=== PATIENT | female | born 1980 | race Two or more races ===

== ENCOUNTER 2018-03-01 08:45 | Emergency (ER) | payer MEDICAID ==
[~2018-03-01] VITALS: Ht 160 cm; Wt 111.6 kg
[2018-03-01 08:58] VITALS: Ht 160 cm; Wt 111.6 kg
[2018-03-01 10:03] LABS: CALCIUM 8.6 mg/dL (8.5-10.1); CARBON DIOXIDE 29.3 mmol/L (21-32); CHLORIDE SERUM 102 mmol/L (98-107); CREATININE SERUM 0.8 mg/dL (0.6-1.0); GFR1 > 60 mL/min; GLUCOSE SERUM 96 mg/dL (74-106); POTASSIUM SERUM 3.4 mmol/L (3.5-5.1); SODIUM SERUM 139 mmol/L (136-145)
[2018-03-01 10:14] LABS: ALBUMIN 3.4 g/dL (3.4-5.0); ALKALINE PHOSPHATASE 96 U/L (46-116); ALT/SGPT 31 U/L (14-59); AST/SGOT 28 U/L (15-37); BILIRUBIN TOTAL 0.1 mg/dL (0.20-1.00); TOTAL PROTEIN, SERUM 7.9 g/dL (6.4-8.2)
[2018-03-01 10:21] LABS: BASOPHIL % 0.5 % (0-2)
[2018-03-01 10:24] LABS: CK-MB 1.9 ng/mL (0-3.6)
[2018-03-01 10:46] LABS: PLATELET COUNT 565 x10^3mcL (130-400); RED CELL DISTRIBUTION WIDTH 18.7 % (11.5-14.5)
[2018-03-01 12:23] VITALS: BP 155/96
== END 2018-03-01 12:23 | disposition home or self-care (01) ==
LOC: ED 08:45
PROVIDERS: Emergency Medicine
DX: L03.115 Cellulitis of right lower limb (principal); J45.909 Unspecified asthma, uncomplicated; Z90.49 Acquired absence of other specified parts of digestive tract
CPT/HCPCS: 83880; J0696; J7030; Q0092

== ENCOUNTER 2018-09-13 23:25 | Emergency (ER) | payer SELFPAY ==
[~2018-09-13] VITALS: Ht 160 cm; Wt 110.7 kg
[2018-09-13 23:30] VITALS: Ht 160 cm; Wt 110.7 kg
[2018-09-14 01:37] VITALS: BP 138/69
== END 2018-09-14 01:37 | disposition home or self-care (01) ==
LOC: ED 23:25
DX: J45.901 Unspecified asthma with (acute) exacerbation (principal); Z90.89 Acquired absence of other organs; Z88.8 Allergy status to other drugs, medicaments and biological substances
CPT/HCPCS: J7613; J7620; Q0092